=== PATIENT | female | born 1945 | race Caucasian/White ===

== ENCOUNTER → 2020-01-01 14:21 | Outpatient (CLI) | payer MEDICARE, OTHER, SELFPAY ==
--- NOTE | 2020-01-01 14:38 | CT_ITS ---
STUDY: CT LEFT KNEE WITHOUT CONTRAST REASON FOR EXAM: Female, 74 years old. 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 MAR recon included. RADIATION DOSAGE (If Supplied By Facility): CTDIvol = ( 15.35 ) mGy, DLP = ( 462.44 ) mGycm TECHNIQUE: Transaxial CT imaging of the knee was performed. Coronal and sagittal images were reformatted. Individualized dose optimization techniques were used for this CT. COMPARISON: None. FINDINGS: Total knee arthroplasties demonstrating showing normal alignment. Along the margin of the prosthesis is no evidence of definitive underlying osseous erosion or evidence of hardware failure. No evidence of acute fracture. Some limitation due to artifact is present. Normal proximal tibiofibular articulation. Small suprapatellar effusion is present. The quadriceps tendon is grossly normal. The patellar tendon is grossly normal. Normal Hoffa''s fat pad. The soft tissues are unremarkable. CT/Extremity Lower without Contra IMPRESSION: Totally arthroplasty showing no evidence of definitive hardware failure or fracture. Minimal suprapatellar effusion. Electronically Signed: Janes Hopper DO at 10:03 EST , Service support ,
[2020-01-01 15:06] LABS: CRP 8.88 mg/L (0.0-3.0)
[2020-01-01 15:53] LABS: Erythrocyte Sedimentation Rate 35 mm/hr (0-30)
[2020-01-01 16:07] LABS: Absolute Lymphocyte Count 2.13 X10^3/uL (0.83-4.51); Basophil# 0.02 X10^3/uL; Basophil% 0.3 % (0-1); Eosinophil# 0.15 X10^3/uL; Eosinophils% 1.9 % (0-5); Hematocrit 41.1 % (37-47); Hemoglobin 13.2 g/dL (12.0-15.0); Lymphocyte # 2.13 X10^3/ul (4.0); Lymphocyte % 27.4 % (19-41); Mean Corp Hgb Conc 32.1 g/dL (32-36); Mean Corpuscular Hgb 27.7 pg (27.0-32.0); Mean Corpuscular Volume 86.3 fL (81-99); Mean Platelet Vol. 11.3 fl (6.2-12.0); Monocyte# 0.49 X10^3/uL; Monocyte% 6.3 % (0-10); NRBC Flagged by Analyzer 0 % (0-5); Neutrophil # 4.95 X10^3/uL (2.7-7.7); Neutrophil % 63.7 % (47-70); Platelet Count 304 K/mm3 (150-450); RBC Distribution Width CV 13.5 % (11.6-14.6); RBC Distribution Width SD 42.4 fl (35.1-43.9); Red Blood Count 4.76 M/mm3 (4.2-5.4); White Blood Count 7.8 K/mm3 (4.4-11.0)
== END ==
PROVIDERS: PCP Family Medicine; Referring Provider Physician Assistant; Visit Provider Physician Assistant
DX: Z96.652 Presence of left artificial knee joint (principal)
CPT/HCPCS: 36415; 73700; 85025; 85652; 86140

== ENCOUNTER → 2020-01-07 10:34 | Outpatient (CLI) | payer MEDICARE, OTHER, SELFPAY ==
[2017-01-07 13:24] VITALS: BMI 38.1
[2020-01-07 11:17] LABS: RBC /Synovial Fluid 0.022 10^6/uL (0); Synovial Fld Mononuclear WBC % 45.2 %; Synovial Fld Polynuclear WBC # 2.559 10^3/uL; Synovial Fld Polynuclear WBC % 54.8 %
[2020-01-07 11:19] LABS: AUTO B FLUID DILUENT BKGD CT WBC <0.1 RBC <0.01 (W<.1,R<.01)
[2020-01-07 11:20] LABS: Appearance /Synovial Fluid Cloudy (CLEAR); Color / Synovial Fluid Pink (Pale Yellow); Viscosity / Synovial Fluid Sl. Viscous (HIGH)
[2020-01-07 12:40] LABS: Lymph 40 %; Neutrophil 60 % (0-25)
[2020-01-07 12:45] LABS: Body Fluid QC Type(s) BF1Q
[2020-01-08 14:42] LABS: Pathologist Comment Reviewed
== END ==
PROVIDERS: PCP Family Medicine; Referring Provider Specialist; Visit Provider Specialist
DX: M25.462 Effusion, left knee (principal); Z96.652 Presence of left artificial knee joint
CPT/HCPCS: 87015; 87070; 87075; 87101; 87116; 87205; 87206; 89050; 89051

== ENCOUNTER 2023-04-05 11:22 | Emergency (ER) | payer MEDICARE, SELFPAY ==
[2023-04-05 11:23] VITALS: BP 138/70; PULSE 93; RESP 16; TEMP 36.3; O2SAT 97
--- NOTE | 2023-04-05 11:40 | EDS_ITS ---
HPI History of Present Illness Chief Complaint: Chest Pain Informant: patient Onset/Context/Timing Onset: Yesterday Activity at onset: gradual Timing: Continuous Quality: Positive for Aching and Sharp Location: Substernal, Right Parasternal, Left Parasternal, Right Chest and Left Chest Worsened By: Breathing Relieved By: Nothing Associated Symptoms: Positive for Dyspnea; Negative for Nausea, Vomiting, Diaphoresis, Cough, Fever, Lightheadedness, Acid Reflux or Palpitations Narrative Narrative: Patient presents with chest pain that began yesterday. Patient states it is gradually gotten worse. Patient states it is diffuse across her chest. Patient states it has been constant. Patient describes it as sharp and aching. Patient states the pain radiates into her neck and back. Patient states her pain is worse with breathing. Patient states nothing seems to help with the pain. Patient admits to some shortness of breath. Patient denies any nausea or vomiting. Patient denies any cough or fevers. CVD Risk Factors: Positive for Hypertension; Negative for Diabetes, Hypercholesterolemia, Family History 1' </=55 or Smoking PE Risk Factors: Negative for Recent Travel/Surgery, Recent Immobilization, Prior DVT or PE or Cancer [facility] Medical History (Updated 04/05/23 @ 15:[address] Ryne Jay DO) GERD (gastroesophageal reflux disease) Hypertension Hypothyroidism Home Medications hydrochlorothiazide 25 mg tablet 25 mg PO DAILY 12/27/16 [History Last Taken Unknown] lisinopril 20 mg tablet (Zestril) 20 mg PO DAILY 12/27/16 [History Last Taken 01/07/17 07:00 20 MG] levothyroxine 100 mcg capsule 100 mcg PO DAILY 04/05/23 [History Last Taken Unknown] [id number]-cphwicsy-[id number] tablet (Multivitamin 50 Plus tablet) 1 tab PO DAILY 04/05/23 [History Last Taken Unknown] omeprazole 40 mg capsule,delayed release 40 mg PO DAILY 04/05/23 [History Last Taken Unknown] Allergy/AdvReac Type Severity Reaction Status Date / Time Food Allergies: Uncoded Allergy Other Verified 04/05/23 11:24 Surgical History Hx of cholecystectomy Hx of total knee replacement Hx of tubal ligation Social History Smoking Status: Never smoker ROS ROS ED Constitutional Constitutional ED: Denies chills or fever(s) Eyes Eyes: Denies blurry vision or change in vision ENT ENT ED: Denies rhinorrhea or sore throat Cardiovascular Cardiovascular: Reports chest pain; Denies palpitations Respiratory/Chest Respiratory/Chest: Reports dyspnea; Denies cough Gastrointestinal Gastrointestinal: Denies nausea or vomiting Genitourinary Genitourinary ED: Denies dysuria or hematuria Musculoskeletal Musculoskeletal: Reports back pain and neck pain Integumentary Denies abscess or rash Neurologic Neurologic: Denies headache(s) or weakness Allergic/Immunologic Allergic/Immunologic ED: Denies mouth swelling or urticaria EXAM Physical Exam Const Vital Signs: 04/05/23 11:23 04/05/23 12:06 04/05/23 12:30 Temperature 97.4 F L Temperature Source Temporal Pulse Rate 93 84 88 Respiratory Rate 16 22 H Blood Pressure 138/70 H 114/73 111/65 Blood Pressure Mean 92 80 Pulse Ox 97 92 Oxygen Delivery Method Room Air Room Air 04/05/23 14:18 04/05/23 15:12 Temperature 98.1 F Temperature Source Temporal Pulse Rate 81 83 Respiratory Rate 19 H 26 H Blood Pressure 103/67 103/69 Blood Pressure Mean 79 80 Pulse Ox 92 93 Oxygen Delivery Method Room Air Room Air Positive well nourished, well developed and obese General Appearance ED: well developed and NAD Nutritional Appearance: obese HEENT normocephalic and atraumatic Eyes PERRL and EOMs intact bilaterally Neck supple and no JVD Chest Wall palpation of chest normal Resp normal respiratory effort and clear to auscultation bilaterally Effort and Inspection: Negative for respiratory distress Cardio regular rate, regular rhythm and no murmurs GI normal to inspection, nondistended, normoactive bowel sounds, soft to palpation, non-tender and non-distended Extremity normal to inspection General Extremety ED: Negative for edema or tenderness General Extremity: Negative for edema Neuro oriented x3, CN's II-XII intact bilaterally and no sensory deficits noted Sensorium / Orientation: awake and alert Motor Exam: strength 5/5 throughout Psych mental status grossly normal Heart Score History: Slightly/Non-Suspicious ECG: Normal Age: >/= 65 years Risk Factors: 1 or 2 Risk Factors Score: 3 MDM MDM MDM Narrative Medical decision making narrative: Differential diagnosis includes cardiac dysrhythmia, cardiac ischemia, pneumonia, pneumothorax, pulmonary embolism, pericarditis, musculoskeletal pain, and anxiety. EKG will be obtained to assess for cardiac dysrhythmia and cardiac ischemia. Chest x-ray will be obtained to assess for pneumonia and pneumothorax. CBC will be obtained to assess for leukocytosis and anemia. Basic metabolic profile will be obtained to assess for renal function and electrolyte abnormality. High-sensitivity troponin will be obtained to assess for cardiac ischemia. D-dimer will be obtained to assess for pulmonary embolism. Lab Data Attestation: I reviewed the patient's lab results. Lab results narrative: CBC was reviewed. There is a leukocytosis of 18.3. The remainder is within normal limits. Basic metabolic profile was reviewed. Creatinine was slightly elevated at 1.34, but was otherwise within normal limits. D-dimer was reviewed and was elevated at 1.67. High-sensitivity troponin was reviewed and was normal at 39. 2-hour repeat high-sensitivity troponin was reviewed and was normal at 44. Labs: Laboratory Results - last 24 hr 04/05/23 04/05/23 04/05/23 11:35 11:35 11:35 WBC 18.3 H RBC 4.95 Hgb 13.7 Hct 43.7 MCV 88.3 MCH 27.7 MCHC 31.4 L RDW Std Deviation 45.1 H RDW Coeff of Anshu 14.1 Plt Count 484 H MPV 10.8 Immature Gran % (Auto) 0.800 Neut % (Auto) 80.1 H Lymph % (Auto) 12.7 L [place] % (Auto) 6.0 Eos % (Auto) 0.2 Baso % (Auto) 0.2 Absolute Neuts (auto) 14.7 H Absolute Lymphs (auto) 2.31 Nucleated RBC % 0 D-Dimer Quant (PE/DVT) 1.67 H* Sodium 138 Potassium 3.7 Chloride 104 Carbon Dioxide 24.0 Anion Gap 10 BUN 14 Creatinine 1.34 H Estim Creat Clear Calc 26.92 Est GFR (MDRD) Af Amer 49 L Est GFR (MDRD) Non-Af 41 L BUN/Creatinine Ratio 10.4 Glucose 134 H Calcium 9.6 Troponin I High Sens 39 04/05/23 14:20 WBC RBC Hgb Hct MCV MCH MCHC RDW Std Deviation RDW Coeff of Anshu Plt Count MPV Immature Gran % (Auto) Neut % (Auto) Lymph % (Auto) [place] % (Auto) Eos % (Auto) Baso % (Auto) Absolute Neuts (auto) Absolute Lymphs (auto) Nucleated RBC % D-Dimer Quant (PE/DVT) Sodium Potassium Chloride Carbon Dioxide Anion Gap BUN Creatinine Estim Creat Clear Calc Est GFR (MDRD) Af Amer Est GFR (MDRD) Non-Af BUN/Creatinine Ratio Glucose Calcium Troponin I High Sens 44 Radiography Chest X-Ray - ED: 1 View, Read by ED Physician and Read by Radiologist Diagnostic Testing: Clinical Impression(s) from Imaging Studies Chest X-Ray 04/05/23 12:16 IMPRESSION: Mild increased markings at the left lung base with blunting of the left costophrenic angle. Electronically Signed: Hi Carlos MD at 12:27 EDT , Chest CTA 04/05/23 12:27 IMPRESSION: No evidence of pulmonary embolism. Small bilateral pleural effusions with bibasilar atelectasis. Small pericardial effusion.. Electronically Signed: Hi Carlos MD at 13:16 EDT , Portable 1 view chest x-ray was obtained. On my independent interpretation, lung ann showed mild increased markings at the left lung base and blunting of the left costophrenic angle. There is normal cardiac silhouette. Bony thorax is normal. There is no acute process noted. Radiologist also interpreted the x-ray and agrees. CTA of the chest was obtained due to the elevated D-dimer. There is no evidence of pulmonary embolism. There are small bilateral pleural effusions with bibasilar atelectasis. There is a small pericardial effusion. This was interpreted by the radiologist and was also independently reviewed by myself. EKG Initial EKG: Attestation: I personally reviewed and interpreted this EKG as follows: Interpretation: Sinus Rhythm (92) and No Acute Injury Pattern Comments: EKG was obtained. On my independent interpretation, it showed a normal sinus rhythm with a rate of 92. VA interval, QRS interval, and QTc intervals were all normal. Gallagher was normal. There are no acute ST or T wave changes. Prior EKG tracings: not available for review Prior: No Prior Treatment and Re-Evaluation :: Patient was given aspirin initially. Patient denies any pain except for when she takes a deep breath. Patient was advised that this could be from pleurisy or musculoskeletal etiology. Patient was advised of her findings. Patient was advised that this does not appear to be cardiac in nature. It is not from a pulmonary embolism. Patient was instructed to take ibuprofen or Tylenol as need ed for pain. Patient was instructed to follow-up with her primary care physician in 5 to 7 days. Patient and family understood and were agreeable with the plan. All questions were answered. Discharge Plan Triage Chief Complaint: Chest Pain ED Provider: Ryne Jay Dx/Rx/DC Orders Clinical Impression: Chest pain of uncertain etiology, Hypertension Instructions: ED Chest Pain, Uncertain Cause, ED Pleurisy Prescriptions: No Action lisinopril [Zestril] 20 MG tablet 20 mg PO DAILY hydrochlorothiazide 25 MG tablet 25 mg PO DAILY omeprazole 40 mg Capsule,Delayed Release(Dr/Ec) 40 mg PO DAILY Multivitamin 50 Plus Tablet 1 tab PO DAILY levothyroxine 100 mcg Capsule 100 mcg PO DAILY Primary Care Provider: Brandon Ramos Referrals: Brandon Ramos MD [Primary Care Provider] - 5-7 Days Disposition Disposition: Home, Self Care
--- NOTE | 2023-04-05 11:49 | EKG12_ITS ---
Test Reason : CP Blood Pressure : / mmHG Vent. Rate : 092 BPM Atrial Rate : 092 BPM P-R Int : 172 ms QRS Dur : 074 ms QT Int : 342 ms P-R-T Axes : 045 003 066 degrees QTc Int : 422 ms Normal sinus rhythm Normal ECG Confirmed by BRAD SEGURA, SYD ([id number]), desk editor ABHINAV MANRIQUEZ ([id number]) on 04/08/2023 2:34:03 PM Referred By: VICENTE/FEMI Confirmed By:SHIMA SALINAS MD
[2023-04-05 12:00] VITALS: BMI 39.6
[2023-04-05 12:01] LABS: Absolute Lymphocyte Count 2.31 X10^3/uL (0.83-4.51); Absolute Neutrophil Count 14.7 X10^3/uL (2.0-7.7); Basophil# 0.03 X10^3/uL; Basophil% 0.2 % (0-1); Eosinophil# 0.03 X10^3/uL; Eosinophils% 0.2 % (0-5); Hematocrit 43.7 % (37-47); Hemoglobin 13.7 g/dL (12.0-15.0); Lymphocyte # 2.31 X10^3/ul (0.83-4.51); Lymphocyte % 12.7 % (19-41); Mean Corp Hgb Conc 31.4 g/dL (32-36); Mean Corpuscular Hgb 27.7 pg (27.0-32.0); Mean Corpuscular Volume 88.3 fL (81-99); Mean Platelet Vol. 10.8 fl (6.2-12.0); Monocyte# 1.09 X10^3/uL; NRBC Flagged by Analyzer 0 % (0-5); Neutrophil # 14.65 X10^3/uL (2.7-7.7); Neutrophil % 80.1 % (47-70); Platelet Count 484 K/mm3 (150-450); RBC Distribution Width CV 14.1 % (11.6-14.6); RBC Distribution Width SD 45.1 fl (35.1-43.9); Red Blood Count 4.95 M/mm3 (4.2-5.4); White Blood Count 18.3 K/mm3 (4.4-11.0)
[2023-04-05] MEDS: Aspirin 81 MG TAB.CHEW 324 MG PO (12:03)
[2023-04-05 12:06] VITALS: BP 114/73; PULSE 84
[2023-04-05] MEDS: Nitroglycerin SL (ED/IMG/CATH) 0.4 MG TABLET SL (12:06)
--- NOTE | 2023-04-05 12:16 | RAD_ITS ---
STUDY: X-RAY CHEST REASON FOR EXAM: Female, 78 years old. Chest pain TECHNIQUE: Single AP portable view of the chest. COMPARISON: None. FINDINGS: EKG electrodes are seen. There is blunting of the left costo phrenic angle with mild increased markings at the left lung base. There is no demonstrated pleural abnormality. Normal size heart. Normal mediastinum and chema. Normal visualized pulmonary arteries. There is atherosclerotic tortuosity of the aortic arch and descending thoracic aorta. There are diffuse degenerative changes of the visualized thoracic spine. Normal visualized ribs, clavicles, and shoulders. There is no demonstrated abnormality of the visualized soft tissue structures of the upper abdomen. RAD/Chest 1 View (Portable) IMPRESSION: Mild increased markings at the left lung base with blunting of the left costophrenic angle. Electronically Signed: Hi Carlos MD at 12:27 EDT ,
[2023-04-05 12:17] LABS: D-Dimer Quantitative (DVT/PE) 1.67 FEU/ug/m (0.27-0.49)
[2023-04-05 12:24] LABS: Anion Gap 10 (5-15); BUN 14 mg/dL (7-18); BUN/Creat Ratio 10.4 RATIO (10-20); Calcium,Total 9.6 mg/dL (8.5-10.1); Chloride 104 mmol/L (98-107); Creatinine, Serum 1.34 mg/dL (0.55-1.02); EST Glomerular Filtration Rate 41 mL/min (>60); Est Glom Filt Rate - Afr Amer 49 mL/min (>60); Estimated Creatinine Clearance 26.92 ml/min; Glucose 134 mg/dL (74-106); Potassium 3.7 mmol/L (3.5-5.1); Sodium Level 138 mmol/L (136-145); Troponin-I HS (w/2H Reflex) 39 pg/mL (3.0-54.0)
--- NOTE | 2023-04-05 12:27 | CT_ITS ---
STUDY: CTA CHEST REASON FOR EXAM: Female, 78 years old. Elevated D-dimer. Chest pain. RADIATION DOSAGE (If Supplied By Facility): CTDIvol = ( 14.915 ) mGy, DLP = ( 484.11 ) mGycm TECHNIQUE: The examination was performed with the intravenous administration of IV 100mL [id number]-[id number]. Post-processing of the angiographic images was performed, with multiplanar reformation and 3D reconstruction. Individualized dose optimization techniques were used for this CT. COMPARISON: None. FINDINGS: Normal enhancement of the main pulmonary artery and right and left pulmonary arteries. Normal enhancement of the bilateral peripheral pulmonary arteries. There is no demonstrated pulmonary embolism. Normal thoracic aorta and visualized great vessels. There is no demonstrated aortic dissection. There is a small pericardial effusion. There are calcifications of the coronary arteries. There are visualized mediastinal lymph nodes, which are within normal size limits, and with normal morphology. Normal hilar regions. Normal visualized trachea and bronchi. The lungs are well expanded. Small bilateral pleural effusions with bibasilar atelectasis. Normal chest wall structures. There are degenerative changes of thoracic spine. Normal visualized upper abdomen. CT/CTA Chest W/WO Contrast IMPRESSION: No evidence of pulmonary embolism. Small bilateral pleural effusions with bibasilar atelectasis. Small pericardial effusion.. Electronically Signed: Hi Carlos MD at 13:16 EDT ,
[2023-04-05 12:30] VITALS: BP 111/65; PULSE 88; RESP 22; O2SAT 92
[2023-04-05 13:54] LABS: Reflex Troponin-HS? (from REC) Y
[2023-04-05 14:18] VITALS: BP 103/67; PULSE 81; RESP 19; TEMP 36.7; O2SAT 92
[2023-04-05 14:44] LABS: Troponin-I HS 44 pg/mL (3.0-54.0)
[2023-04-05 15:12] VITALS: BP 103/69; PULSE 83; RESP 26; O2SAT 93
[2023-04-05 15:36] VITALS: BP 106/62; PULSE 85; RESP 24; O2SAT 92
== END 2023-04-05 15:50 | disposition home or self-care (01) ==
PROVIDERS: Emergency Provider Emergency Medicine; PCP Family Medicine; Visit Provider Emergency Medicine
DX: R07.9 Chest pain, unspecified (principal); I10 Essential (primary) hypertension; K21.9 Gastro-esophageal reflux disease without esophagitis; E03.9 Hypothyroidism, unspecified; E66.9 Obesity, unspecified; Z79.899 Other long term (current) drug therapy
CPT/HCPCS: 71045; 71275; 80048; 84484; 85025; 85379; 93005; 99285; Q9967; A4216